=== PATIENT | male | born 1995 | race Caucasian/White ===

== ENCOUNTER 2017-05-08 15:52 | Emergency (ER) | payer SELFPAY ==
[~2017-05-08] VITALS: Ht 167.6 cm; Wt 53.6 kg
[2017-05-08 15:57] VITALS: BP 122/58; PULSE 102; TEMP 99.2
[2017-05-08] MEDS ORDERED: PHENERGAN 25 TA25 MG PO (16:59)
== END 2017-05-08 16:58 | disposition home or self-care (01) ==
LOC: COL.ER 15:52
DX: J06.9 Acute upper respiratory infection, unspecified (principal); R11.10 Vomiting, unspecified; F17.200 Nicotine dependence, unspecified, uncomplicated
CPT/HCPCS: J1885; J2405

== ENCOUNTER 2017-05-18 11:07 | Emergency (ER) | payer SELFPAY ==
[~2017-05-18] VITALS: Ht 165.1 cm; Wt 63.6 kg
[~2017-05-18 11:07] MED LIST: PHENERGAN 25 TA25 MG PO
[2017-05-18 11:09] VITALS: BP 104/56; TEMP 98.2
[2017-05-18 11:23] VITALS: PULSE 62
[2017-05-18] MEDS ORDERED: AMOXICILLIN 50500 MG PO (11:23)
== END 2017-05-18 11:27 | disposition home or self-care (01) ==
LOC: COL.ER 11:07
DX: K02.9 Dental caries, unspecified (principal)